=== PATIENT | male | born 1970 | race Caucasian/White ===

== ENCOUNTER 2016-11-02 21:17 | Emergency (ER) | payer OTHER ==
[~2016-11-02] VITALS: Ht 190.5 cm; Wt 127.3 kg
[2016-11-02 21:24] VITALS: BP 154/100; PULSE 76; RESP 16; O2SAT 98
--- NOTE | 2016-11-02 22:14 | ED.REPORT ---
HPI-Abd Pain M 40 and Over Date of Service Nov 02, 2016 ED Provider: Dr. Tru Ly D.O. A 46 year old male with a history of biliary colic and cholelithiasis presents to the ED with right-sided abdominal pain onset 1600 today. He denies nausea, vomiting, diarrhea, hematuria, or urinary frequency. The pain is exacerbated with laying flat and the patient is inclined to pace around the room. He has not had kidney stones in the past. Nursing Notes Stated Complaint: STOMACH PAIN Chief Complaint: Male Abdominal Pain Nursing Notes Reviewed: Yes Allergies: Coded Allergies: No Known Allergies (Unverified , 11/02/16) General Time Seen by MD: 22:13 Chief Complaint Abdominal pain Hx Obtained From: Patient Arrived By: Walk-in Sudden in Onset?: Yes ("Kind of") Onset Occurred: 5 - 8 hours ago Symptom Duration: Since onset Location: : RLQ: RUQ Quality: Painful Severity: Current: Moderate Severity: Maximum: Moderate Associated with: Denies: Fever, Hematuria, Urinary frequency, Vomiting Exacerbated by: Supine Relieved by: Movement Pertinent Negative: Relieved by nothing Context Related History: Reports: Cholelithiasis Recent Healthcare: No recent doctor visit Similar Sx Previous: No Past Medical History Past Medical History Biliary colic with history of Cholelithiasis Past Surgical History None reported Smoking History Unknown if Ever Smoker Social History Other Social History: Ambulatory Status Independent Review of Systems Constitutional: Denies: Fever GI: Reports: Abdominal pain (Right-sided), Denies: Diarrhea, Nausea, Vomiting Male: Denies Hematuria, Denies Urinary frequency Complete sys rev & neg: except as marked. Physical Exam Initial Vital Signs Vital Signs (First) Date Time Temp Pulse Resp B/P Pulse Ox O2 Delivery O2 Flow Rate FiO2 11/02/16 21:24 36.3 76 16 154/100 98 Room Air Initial VS: Reviewed Head / Eyes: Atraumatic, Normocephalic ENT: Conjunctiva normal, No scleral icterus Neck: Supple, Full range of motion Skin: Warm, Dry, No cyanosis Neurologic: Alert, Oriented, Nonfocal Psychiatric: Mood/affect normal, Behavior normal, Normal thought content General/Constitutional: Awake, Alert Distress / Hydration: Positive: Distress moderate Patient is pacing around the room Respiratory / Chest: Breath sounds NL, Breath sounds = bilat, No respiratory distress Cardiovascular: Heart rate NL, Regular rhythm, Heart sounds NL Abdomen: Soft Tenderness/Guarding/Rebound: Positive: Tender RLQ... (Moderate) Back: Full range of motion Right CVAT Lower Extremity / Pelvis / MS: Neurologic intact, Vascular intact, No edema Interpretation & Diagnostics URINE DIPSTICK: 1.015 sp gravity 5 pH Trace blood Otherwise negative Lab Results Interpretation Result Diagram: 11/02/16220611/02/162206 Test 11/02/16 22:07 11/02/16 23:35 White Blood Count 10.2th/mm3 (3.8-10.1) Red Blood Count 5.16mil/mm3 (4.40-5.80) Hemoglobin 15.4g/dL (13.8-17.2) Hematocrit 44.1% (41.0-50.0) Mean Corpuscular Volume 85.5fL (81-100) Mean Corpuscular Hemoglobin 29.8pg (27.0-35.0) Mean Corpuscular Hemoglobin Concent 34.9% (32.0-37.0) Red Cell Distribution Width 12.0% (12.3-15.4) Platelet Count 248bil/L (150-400) Neutrophils (%) (Auto) 61.8% (40-74) Lymphocytes (%) (Auto) 28.0% (14-46) Monocytes (%) (Auto) 8.4% (4-12) Eosinophils (%) (Auto) 1.1% (0-5) Basophils (%) (Auto) 0.3% (0-3) Sodium Level 137mEq/L (134-144) Potassium Level 4.4mEq/L (3.5-5.2) Chloride Level 100mEq/L (97-108) Carbon Dioxide Level 23mmol/L (18-29) Blood Urea Nitrogen 17mg/dL (6-24) Creatinine 0.98mg/dL (0.76-1.27) Estimat Glomerular Filtration Rate 88mL/min (>59) Glucose Level 107mg/dL (60-99) Calcium Level 9.0mg/dL (8.5-10.1) Magnesium Level 2.2mg/dL (1.6-2.6) Total Bilirubin 0.4mg/dL (0.0-1.2) Aspartate Amino Transf (AST/SGOT) 35U/L (0-50) Alanine Aminotransferase (ALT/SGPT) 57U/L (0-44) Alkaline Phosphatase 45U/L (25-150) Total Protein 7.7g/dL (6.4-8.4) Albumin 4.2g/dL (3.4-5.0) Lipase 42U/L (13-60) Urine Color Yellow (YELLOW) Urine Appearance Clear (CLEAR,HAZY) Urine pH 6.0 (5.0-8.0) Urine Specific [place] 1.015 (1.003-1.035) Urine Protein Negativemg/dL (NEG,TRACE) Urine Glucose (UA) Negativemg/dL (NEGATIVE) Urine Ketones Negativemg/dL (NEGATIVE) Urine Occult Blood Negative (NEGATIVE) Urine Nitrite Negative (NEGATIVE) Urine Bilirubin Negative (NEGATIVE) Urine Urobilinogen Normalmg/dL (NORMAL) Urine Leukocyte Esterase Negative (NEGATIVE) Urine RBC 0-2/hpf (0-2) Urine WBC 0-5/hpf (0-5) Urine Epithelial Cells Occasional/hpf (NONE-MOD) Urine Crystals None seen (NONE SEEN) Urine Bacteria None/hpf (NONE-FEW) Urine Hyaline Casts None/lpf (NONE) Urine Granular Casts None seen (NONE SEEN) Urine Waxy Casts None seen (NONE SEEN) Urine Red Blood Cell Casts None seen (NONE SEEN) Urine White Blood Cell Casts None seen (NONE SEEN) Urine Mucus Present (None Seen) Urine Trichomonas None seen (NONE SEEN) Urine Yeast None (NONE SEEN) Urinalysis Comment None Urine Culture Reflexed Not indicated CT Abd / Pelvis Interpretation IMPRESSION: No acute abnormalities are identified. Findings suggestive of fatty infiltration of the liver. Transmitted to ED by Marcus Lizama M.D. at 11/02/2016 - 11:44:48 PM PST Study type: Abdominal CT no contrast Interpretation / Wet Read by: Interpret - Radiologist Re-Eval/Medical Decision Med Decision/Clinical Course 46-year-old male presents with precipitous onset colicky right lower quadrant abdominal pain seems to radiate to his right flank. Moving around seemed to improve the pain. Urine dip had some red cells in it. History with Toradol and some pain meds for possible renal colic. Interesting though his CT KUB was essentially normal. No signs of hydronephrosis. No opaque stones. Normal appendix. Either way Octavio felt much better. At discharge he is pain-free. He did have some trace red cells in his urine so perhaps he passed a kidney stone. He certainly could have a non-radiopaque stone that is not causing any obstruction. Either way he is pain-free now. Abdominal aortic aneurysm ruled out. Pyelonephritis unlikely. Appendicitis unlikely. Short course of Patterson and follow up with primary care. Routine opiate warnings given. Source of Hx: Old records Time of Eval: 23:59 Patient Status: Condition improved Re-Evaluation/Progress Note: Discussed with patient CT and lab results, diagnosis, and plan for discharge. Follow-up and return to the ER instructions given. Patient agrees with plan for care and all questions were addressed. Counseled Regarding: Diagnosis, Lab results, Need for follow-up, When/why to return to ED Discharge & Departure Primary Impression: Right flank pain Additional Impression: RLQ abdominal pain Disposition: Home Vital Signs - All Vital Signs Date Time Temp Pulse Resp B/P Pulse Ox O2 Delivery O2 Flow Rate FiO2 11/02/16 23:59 36.3 69 131/91 98 Room Air 11/02/16 21:24 36.3 76 16 154/100 98 Room Air )( All Prior VS Reviewed: Yes Condition: Stable Patient Instructions: Acute Abdominal Pain (ED), Nephrolithiasis (ED) Additional Instructions: Thank you for entrusting us with your care. Your exam today was reassuring. You probably passed a small kidney stone as there was a trace amount of blood in your urine and your CT scan was negative. Do not drive tonight as you have received sedating medication. 1-2 Patterson every six hours as needed for pain. Do not drink alcohol, drive, or consume acetaminophen while taking Patterson. Drink plenty of liquids to remain hydrated. Call your primary care provider tomorrow for a follow-up appointment next week. Return to the ER with any new or worsening symptoms. Referrals: Collin Patel MD (PCP) Lisa Attestation Portions of this note were transcribed by Amparo Pan. I, Dr. Ly, personally performed the history, physical exam, and medical decision-making; I reviewed and confirmed the accuracy of the information in the transcribed note. Signed by: Lisa Fam, 11/03/2016, 01:01 copies to: Collin Patel MD, Todd P DO Nov 02, 2016 22:14 AMPARO PAN Nov 02, 2016 22:20
[2016-11-02] MEDS ORDERED: Ondansetron 2 mg/mL 2 mL Inj IVPUSH PRN (22:20)
[2016-11-02] MEDS ORDERED: HYDROmorphone 0.5 mg/0.5 mL iSecure Syringe IVPUSH PRN (22:20)
[2016-11-02 22:21] LABS: BASOPHILS % (AUTO) 0.3 % (0-3); EOSINOPHILS % (AUTO) 1.1 % (0-5); MONOCYTES % (AUTO) 8.4 % (4-12); Mean Corpuscular Hemoglobin 29.8 pg (27.0-35.0); Mean Corpuscular Volume 85.5 fL (81-100); NEUTROPHILS % (AUTO) 61.8 % (40-74); Platelet Count 248 bil/L (150-400)
[2016-11-02] MEDS: 0.9% Sodium Chloride 1,000 ML IV SCH ×2 (22:34→23:52)
[2016-11-02 22:40] LABS: Magnesium 2.2 mg/dL (1.6-2.6)
[2016-11-02] MEDS ORDERED: _HYDROcodone/APAP 5-325 mg Tablet PO PRN (23:50)
[2016-11-02 23:59] VITALS: BP 131/91; PULSE 69; O2SAT 98
[2016-11-03 00:42] LABS: APPEARANCE,URINE CLEAR (CLEAR,HAZY); COLOR,URINE YELLOW (YELLOW); OCCULT BLOOD,URINE NEGATIVE (NEGATIVE); UROBILINOGEN,URINE NORMAL (NORMAL)
--- NOTE | 2016-11-03 08:20 | DRSVH ---
PROCEDURE: CT KUB ([id number]) INDICATIONS: RLQ and right flank pain TECHNIQUE: Noncontrast 5 mm thick sections acquired from the diaphragms to the symphysis. 5 mm thick coronal an d sagittal reformats were then performed. For radiation dose reduction, the following was used: aut omated exposure control, adjustment of mA and/or kV according to patient size. COMPARISON: None. FINDINGS: Image quality: Excellent. Lung bases: Lung bases are clear. Heart size is normal. Urinary system: Both kidneys are normal in size. No kidney stones. No hydronephrosis or perinephri c fat stranding. Both ureters appear non-dilated throughout their expected courses. Bladder wall th ickness is normal; no calcified bladder stones. Other solid organs: There is mild hypoattenuation of the liver consistent with fatty infiltration wi th relative sparing along the gallbladder fossa. The spleen is normal in size. The gallbladder appe ars within normal limits without calcified gallstones. Pancreas is normal in contours. No adrenal n odules. Peritoneum and bowel: Unenhanced bowel loops demonstrate normal wall thickness and caliber. The rosanne endix is normal in appearance. No free fluid or air. Nodes and vessels: No retroperitoneal or mesenteric adenopathy by size criteria. Aorta and inferior vena cava are normal in caliber. Abdominal wall: No ventral hernias. Pelvis: No free pelvic fluid. No inguinal hernias or adenopathy. Bones: No suspicious bony lesions. No vertebral body compression fractures. IMPRESSION: 1. No acute intra-abdominal abnormality. Specifically, no evidence of appendicitis. Dictated by: Ted Gibson M.D. on 11/03/2016 at 8:18 Approved by: Ted Gibson M.D. on 11/03/2016 at 8:18
== END 2016-11-03 00:44 | disposition home or self-care (01) ==
LOC: SED 21:17
DX: R10.31 Right lower quadrant pain (principal); Z87.19 Personal history of other diseases of the digestive system
CPT/HCPCS: 36415; 74176; 80053; 81000; 83690; 83735; 85025; 96361; 96374; 96375; 99285; J1170; J2405; J7030